=== PATIENT | female | born 1960 | race Caucasian/White ===

== ENCOUNTER 2017-06-22 10:54 | Emergency (ER) | payer BC ==
[2017-06-22 11:52] VITALS: BP 130/84
--- NOTE | 2017-06-22 12:25 | UC ---
Truncal Trauma HPI - HPI Summary HPI Summary: Patient was tripped up by a dog leash, fell to the left side 5days ago, reinjured the area lifting an object, felt a pop. - History Of Current Complaint Chief Complaint: UCTrauma Stated Complaint: RIB PAIN Time Seen by Provider: 06/22/17 11:53 Hx Obtained From: Patient ?: No Onset/Duration: Sudden Onset, Lasting Days Onset Of Pain: Post Accident Severity Initially: Moderate Severity Currently: Severe Mechanism Of Injury: Fall From A Standing Position Aggravating Factor(s): Movement, Deep Breathing, Cough Alleviating factor(s): Nothing - Allergies/Home Medications Allergies/Adverse Reactions: Allergies Allergy/AdvReac Type Severity Reaction Status Date / Time No Known Allergies Allergy Verified 09/28/16 10:39 Home Medications: Home Medications Aspirin [Sherrie Advanced Aspirin Re] 650 mg PO Q8HR PRN 06/22/17 [History Confirmed 06/22/17] Naproxen [Naproxen 500 mg] 500 mg PO Q8H PRN 06/22/17 [History Confirmed ] PMH/Surg Hx/FS Hx/Imm Hx Previously Healthy: Yes - Surgical History Surgical History: Yes Surgery Procedure, Year, and Place: hysterectomy 2014, T&A 1972, lap vishal 2008 , colon resection 2010, ruptured appy 2011 - Family History Known Family History: Positive: Cardiac Disease, Hypertension Negative: Diabetes - Social History Alcohol Use: Occasionally Substance Use Type: None Smoking Status (MU): Never Smoked Tobacco Have You Smoked in the Last Year: No Review of Systems Constitutional: Negative Skin: Negative Eyes: Negative ENT: Negative Respiratory: Negative Cardiovascular: Negative Gastrointestinal: Negative Genitourinary: Negative Motor: Negative Neurovascular: Negative Musculoskeletal: Arthralgia, Decreased ROM, Myalgia Neurological: Negative Psychological: Negative All Other Systems Reviewed And Are Negative: Yes Physical Exam Triage Information Reviewed: Yes Appearance: Well-Appearing, Well-Nourished, Pain Distress Vital Signs: Initial Vital Signs Temp 97.9 F 06/22/17 11:44 Pulse 74 06/22/17 11:44 Resp 14 06/22/17 11:44 BP 130/84 06/22/17 11:44 Pulse Ox 100 06/22/17 11:44 Vital Signs Reviewed: Yes Eye Exam: Normal ENT Exam: Normal ENT: Positive: Pharyngeal erythema, TMs normal, TM bulging Dental Exam: Normal Neck exam: Normal Neck: Positive: Supple, Nontender, No Lymphadenopathy Respiratory Exam: Normal Respiratory: Positive: Chest non-tender, Lungs clear, Normal breath sounds Cardiovascular Exam: Normal Cardiovascular: Positive: RRR, No Murmur, Pulses Normal Abdominal Exam: Normal Abdomen Description: Positive: Nontender, No Organomegaly, Soft Bowel Sounds: Positive: Present Musculoskeletal: Positive: No Edema, ROM Limited @ - in trunk fle and ext, left arm movement Neurological Exam: Normal Psychological Exam: Normal Skin Exam: Normal Truncal Trauma Course/Dx - Course Course Of Treatment: hx obtained, exam performed ,meds reviewed, xray obtained, patient had motrin prior to arrival, incentive spirometer givena nd education on use provided, given ABX and advised to follow up by the end of the week with PCP - Differential Dx/Diagnosis Differential Diagnosis/HQI/PQRI: Chest Wall Contusion, Rib Fracture, Thoracic - strain Provider Diagnoses: pleural effusion. rib contusion, left. SOB on exertion Discharge - Discharge Plan Condition: Stable Disposition: HOME Patient Education Materials: Pleural Effusion (ED), Rib Contusion (ED) Additional Instructions: 1. take the medication as prescribed. 2. Increase your activity level. and move the upper body slowly and increase the ROM as tolerated 3. Use the incentive spriaometer 5x a day for flavia next week and follow up with Dr Bautista this week.
--- NOTE | 2017-06-22 12:33 | RAD ---
Indication: LEFT side rib pain post fall. Anterior, lateral, and posterior mid to lower ribs. Comparison: August 29, 2011 Technique: 4 view LEFT unilateral rib series including a PA chest radiograph. Report: Low lung volumes with bibasilar subsegmental atelectasis. No visualized rib fracture. Negative for pneumothorax. Potential small LEFT pleural effusion. Accounting for low lung volumes the heart, pulmonary vasculature, and mediastinal contours are unremarkable. IMPRESSION: Low lung volumes with bibasilar subsegmental atelectasis. No visualized LEFT rib fracture. Negative for pneumothorax. Potential small LEFT pleural effusion.
== END 2017-06-22 12:59 | disposition home or self-care (01) ==
LOC: UCCORT 10:54
DX: S20.212A Contusion of left front wall of thorax, initial encounter (principal); W01.0XXA Fall on same level from slipping, tripping and stumbling without subsequent striking against object, initial encounter; J90 Pleural effusion, not elsewhere classified; R06.02 Shortness of breath; Z79.82 Long term (current) use of aspirin
CPT/HCPCS: 99212; G0463

== ENCOUNTER 2019-03-04 08:07 | Emergency (ER) | payer BC ==
[2019-03-04 08:35] VITALS: BP 127/84
--- NOTE | 2019-03-04 09:18 | UC ---
General HPI - HPI Summary HPI Summary: RN notes - Headache, ear "pressure", "mostly clear" nasal congestion/discharge, "feels hot" throat, nonproductive cough, "thight" in chest (no pain), and more tired than normal for five days. Sweats three days ago. No known fever. Has missed four days of work. Has tried increased fluids and Mucinex without improvement and feels like "it's moving down into my chest". Last 5 days feeling sick. Tired. + sinus pressure / congestion. Mild cough. However, since yesterday feels like the cough is going deeper into her chest. Hard to sleep d/t rattling in her chest. No recent fever / chills. No GI issues. No rash. - History of Current Complaint Chief Complaint: UCRespiratory Stated Complaint: UPPER RESP COMPLAINT Time Seen by Provider: 03/04/19 09:17 Hx Obtained From: Patient Pain Intensity: 0 - Allergy/Home Medications Allergies/Adverse Reactions: Allergies Allergy/AdvReac Type Severity Reaction Status Date / Time No Known Allergies Allergy Verified 03/04/19 08:30 Home Medications: Home Medications guaiFENesin [Guaifenesin] 400 mg PO Q4H PRN 03/04/19 [History Confirmed 03/04/19 ] PMH/Surg Hx/FS Hx/Imm Hx Previously Healthy: Yes - Surgical History Surgical History: Yes Surgery Procedure, Year, and Place: Hysterectomy, 2014, [place]; Appendectomy , 2011, [place]; Colon Resection, 2010, [place]; Cholecystectomy, 2008, [place]; T& A, 1971, [place] - Family History Known Family History: Positive: Cardiac Disease, Hypertension Negative: Diabetes - Social History Alcohol Use: Occasionally Substance Use Type: None Smoking Status (MU): Never Smoked Tobacco Have You Smoked in the Last Year: No Review of Systems All Other Systems Reviewed And Are Negative: Yes Constitutional: Positive: Fatigue - see hpi Skin: Positive: Other Eyes: Positive: Other ENT: Positive: Other Respiratory: Positive: Cough - see hpi Cardiovascular: Positive: Other - see hpi Gastrointestinal: Positive: Other - see hpi Motor: Positive: Other - see hpi Neurovascular: Positive: Other - see hpi Musculoskeletal: Positive: Other: - see hpi Neurological: Positive: Other - see hpi Psychological: Positive: Negative Is Patient Immunocompromised?: No Physical Exam Triage Information Reviewed: Yes Appearance: Well-Nourished - sitting up, looks tired, but nad Vital Signs: Initial Vital Signs Temp 98.5 F 03/04/19 08:27 Pulse 78 03/04/19 08:27 Resp 18 03/04/19 08:27 BP 127/84 03/04/19 08:27 Pulse Ox 98 03/04/19 08:27 Vital Signs Reviewed: Yes Eye Exam: Normal ENT: Positive: Other - oroph mild red, no sores noted. uvula mildline. + tender bilat frontal and L max sinus. TM R nad RM L dull, [place] Neck exam: Normal Neck: Positive: Supple, Nontender, No Lymphadenopathy Respiratory Exam: Other - BS equal with scattered rhonchi and insp and exp wheeze Respiratory: Positive: No respiratory distress, No accessory muscle use Cardiovascular Exam: Normal Cardiovascular: Positive: RRR, No Murmur, Pulses Normal Abdominal Exam: Normal Abdomen Description: Positive: Nontender Musculoskeletal Exam: Normal - gait steady Neurological Exam: Normal - grossly nonfocal Psychological Exam: Normal - conversing easily and appropriately nad Skin Exam: Normal - nondiaphoretic. no visible or reported rash Course/Dx - Course Course Of Treatment: No hx asthma, nonsmoker. DuoNeb x 1 Cxr - see [facility] re details. Feels better s/p neb tx. REviewed coa / tx plan Questions as posed answered to the best of my ability. - Diagnoses Provider Diagnosis: Sinusitis, Bronchitis, Wheezing Discharge - Sign-Out/Discharge Documenting (check all that apply): Patient Departure All imaging exams completed and their final reports reviewed: Yes - Discharge Plan Condition: Stable Disposition: HOME Prescriptions: Albuterol HFA INHALER* [Ventolin HFA Inhaler*] 1 - 2 puff INH Q4H PRN #1 mdi PRN Reason: Wheezing Amoxicillin/Clavulanate TAB* [Augmentin TAB 875*] 875 mg PO BID 10 Days #20 tab Fluconazole [Diflucan] 150 mg PO DAILY #2 tablet Patient Education Materials: Sinusitis (ED), Acute Bronchitis (ED), Bronchospasm (ED) Forms: *Work Release Referrals: Bulmaro Bautista MD [Primary Care Provider] - Additional Instructions: Please follow up with your primary care physician per routine. Please seek medical attention for worse or new problems in the meantime. Hydrate. - Billing Disposition and Condition Condition: STABLE Disposition: Home
[2019-03-04] MEDS ORDERED: Albuterol/Ipratropium NEB.SOL* Albuterol 2.5 MG/Ipratropium 0.5 MG 3 ML INH ONE (09:34)
== END 2019-03-04 10:36 | disposition home or self-care (01) ==
LOC: UCCORT 08:07
DX: J32.9 Chronic sinusitis, unspecified (principal); J40 Bronchitis, not specified as acute or chronic
CPT/HCPCS: 71046; 99212; A9270-GY; G0463